=== PATIENT | male | born 2000 | race Asian ===

== ENCOUNTER → 2024-11-25 08:50 | Outpatient (CLI) | payer BC, SELFPAY ==
--- NOTE | 2024-11-25 | DI.RAD.S_ITS ---
PROCEDURE: XR FOOT LT 2V INDICATIONS: LEFT HEEL PAIN TECHNIQUE: 2 views of the foot were acquired. COMPARISON: None. FINDINGS: Bones: No fractures or dislocations. No suspicious bony lesions. Soft tissues: No tibiotalar joint effusion. Achilles tendon appears normal. IMPRESSION: No visualized acute fracture or dislocation. However, if clinical concern and/or pain persist, short interval imaging followup in 7-10 days is recommended, as occult injury cannot be definitively excluded. Dictated by: Mag Ruiz M.D. on 11/25/2024 at 11:50 Approved by: Mag Ruiz M.D. on 11/25/2024 at 11:50
--- NOTE | 2024-11-25 | DI.RAD.S_ITS ---
PROCEDURE: XR ANKLE LT MIN 3V INDICATIONS: LEFT HEEL PAIN TECHNIQUE: 3 views of the ankle were acquired. COMPARISON: None. FINDINGS: Bones: No fractures or dislocations. Ankle mortise is normally aligned. No suspicious bony lesions. Soft tissues: No tibiotalar joint effusion. Achilles tendon appears normal. IMPRESSION: No visualized acute fracture or dislocation. However, if clinical concern and/or pain persist, short interval imaging followup in 7-10 days is recommended, as occult injury cannot be definitively excluded. Dictated by: Mag Ruiz M.D. on 11/25/2024 at 11:49 Approved by: Mag Ruiz M.D. on 11/25/2024 at 11:50
== END ==
LOC: RAD 08:52
PROVIDERS: Family Provider Pediatrics; PCP Pediatrics; Referring Provider Family Medicine; Visit Provider Family Medicine
DX: M79.672 Pain in left foot (principal)
CPT/HCPCS: 73610; 73620